=== PATIENT | male | born 1990 | race Two or more races ===

== ENCOUNTER 2023-12-23 17:38 | Emergency (ER) | payer SELFPAY ==
[2023-12-23] MEDS: Lidocaine 2% Viscous Solution 15 ML UD PO ONE (18:24)
[2023-12-23] MEDS: Aluminum Hydroxide/Magnesium Hydroxide/Simethicone XS Susp 30 ML Cup PO ONE (18:24)
== END 2023-12-23 19:07 | disposition home or self-care (01) ==
LOC: MW.ED 17:38
DX: J02.9 Acute pharyngitis, unspecified (principal); Z75.8 Other problems related to medical facilities and other health care
CPT/HCPCS: 87651; 99283; A9270

== ENCOUNTER 2025-07-10 12:44 | Emergency (ER) | payer SELFPAY ==
[2025-07-10] MEDS: Ketorolac 30 MG/ML SDV IM ONE (13:25)
[2025-07-10 13:28] LABS: BASOPHILS ABSOLUTE AUTO 0.03 K/uL (0.00-0.20); BASOPHILS PERCENT AUTO 0.3 % (0.0-1.0); EOSINOPHILS ABSOLUTE AUTO 0.09 K/uL (0.00-0.45); EOSINOPHILS PERCENT AUTO 1.0 % (0.0-6.0); IMMATURE GRAN ABSOLUTE AUTO 0.02 K/uL (0.00-0.05); IMMATURE GRAN PERCENT AUTO 0.2 % (0.0-0.4); LYMPHOCYTES ABSOLUTE AUTO 1.88 K/uL (1.00-4.80); LYMPHOCYTES PERCENT AUTO 20.9 % (24.0-44.0); MEAN PLATELET VOLUME 8.4 fL (9.4-12.4); MONOCYTES ABSOLUTE AUTO 0.47 K/uL (0.00-0.80); MONOCYTES PERCENT AUTO 5.2 % (0.0-8.0); NEUTROPHILS ABSOLUTE AUTO 6.49 K/uL (1.80-7.70); NEUTROPHILS PERCENT AUTO 72.4 % (41.0-71.0); NRBC ABSOLUTE 0.00 K/uL (0.00-0.02); NRBC PERCENT 0.0 /100WBC (0.0-0.2); PLATELET COUNT,PLT 296 K/uL (150-400); RED BLOOD CELL COUNT 5.49 M/uL (4.52-5.90); WHITE BLOOD CELL COUNT,WBC 8.98 K/uL (3.9-11.3)
[2025-07-10 13:57] LABS: A/G RATIO 1.1 (0.9-1.6); ALANINE AMINOTRANSFERASE,ALT 103.0 IU/L (14-63); ASPARTATE AMNIOTRANSFERASE,AST 85.0 IU/L (15-37); BILIRUBIN TOTAL 0.9 mg/dL (0.2-1.0); BLOOD UREA NITROGEN,BUN 8.0 mg/dL (7.0-18.0); CARBON DIOXIDE,CO2 25.8 mmol/L (21.0-32.0); CHLORIDE,CL 100.0 mmol/L (98-107); CREATININE 1.1 mg/dL (0.8-1.3); EST CRCL DRUG DOSING (CG) 93.73 mL/min; ESTIMATED GFR 90.0 mL/min (>60); GLUCOSE RANDOM 151.0 mg/dL (74-106); POTASSIUM,K 3.2 mmol/L (3.5-5.1); PROTEIN TOTAL,TP 8.4 g/dL (6.4-8.2); SODIUM,NA 136.0 mmol/L (136-148)
[2025-07-10 14:45] LABS: APPEARANCE,URINE CLEAR; GLUCOSE,URINE NEGATIVE (NEGATIVE); OCCULT BLOOD,URINE NEGATIVE (NEGATIVE)
[2025-07-10 14:53] LABS: EPITHELIAL CELLS,URINE NOT SEEN (NONE-FEW)
[2025-07-10 16:53] LABS: C. TRACHOMATIS BY PCR NOT DETECTED; N. GONORRHOEAE BY PCR NOT DETECTED
== END 2025-07-10 16:18 | disposition home or self-care (01) ==
LOC: MW.ED 12:44
DX: A53.9 Syphilis, unspecified (principal); R94.5 Abnormal results of liver function studies; N48.89 Other specified disorders of penis; Z91.018 Allergy to other foods; Z91.013 Allergy to seafood; Z79.899 Other long term (current) drug therapy
CPT/HCPCS: 36415; 76870; 80053; 80307; 81001; 85025; 85652; 86140; 86592; 87389; 87491; 87591; 93976; 96372; 99284; A9270; J0696; J1885; J2003; 99283